=== PATIENT | female | born 1935 | race Caucasian/White ===

== ENCOUNTER 2021-11-15 10:57 | Emergency (ER) | payer MEDICARE, OTHER ==
[2021-11-15 12:47] LABS: BASOPHIL 0.9 % (0-2); EOSINOPHIL 3.5 % (0-7); HCT 36.1 % (37.0-47.0); LYMPHOCYTE 24.5 % (15-48); MCH 31.3 pg (25.0-31.0); MCHC 33.2 g/dL (32.0-36.0); MONOCYTE 11.6 % (0-12); MPV 8.5 fL (6.0-9.5); NRBC 0; PLT 298 K/uL (150-400); RBC 3.84 M/uL (4.20-5.40); WBC 7.5 K/uL (4.0-10.5)
[2021-11-15 12:55] LABS: ALBUMIN 3.2 g/dL (3.4-5.0); BILIRUBIN - TOTAL 0.4 mg/dL (0.2-1.0); CREATININE 0.75 mg/dL (0.51-0.95); GLOBULIN (CALCULATION) 3.1 g/dL; TOTAL PROTEIN 6.3 g/dL (6.4-8.2)
== END 2021-11-15 13:40 | disposition home or self-care (01) ==
LOC: FER 10:57
PROVIDERS: Emergency Medicine
DX: J20.8 Acute bronchitis due to other specified organisms (principal); I95.9 Hypotension, unspecified; Z20.822 Contact with and (suspected) exposure to COVID-19; Z88.0 Allergy status to penicillin; Z88.1 Allergy status to other antibiotic agents; Z88.6 Allergy status to analgesic agent; Z88.8 Allergy status to other drugs, medicaments and biological substances
CPT/HCPCS: 36415; 71046; 80053; 85025; J7030; U0002